=== PATIENT | male | born 1980 | race Caucasian/White ===

== ENCOUNTER → 2021-08-01 | Outpatient (CLI) | payer OTHER ==
--- NOTE | 2021-08-01 15:35 | CONS ---
CONSULTATION 41-year-old gentleman has been evaluated in Sleep Center for possible obstructive sleep apnea-hypopnea syndrome. HISTORY OF PRESENT ILLNESS SLEEP-WAKE EVALUATION: SLEEP SCHEDULE: Patient's usual sleep schedule from 10 p.m. until 5:45 am on weekdays and from 10 p.m. to 7 a.m. on weekends. FALLING ASLEEP: No problems with falling asleep, although he has TV set in bedroom. DURING SLEEP: He usually sleeps on the side position. He wakes up from sleep up to 5 times with nocturia. He has witnessed episodes of stopped breathing during sleep, choking and gasping for air. He wakes up with a dry mouth, panic attacks. Positive history of hypnagogic hallucinations but no history of sleep paralysis or cataplexy. DURING THE DAY/SLEEP WAKE EVALUATION: Positive history of taken naps during the day. [place] Sleepiness Scale is in very high range of 18. PAST MEDICAL HISTORY: Positive for hypertension, carpal tunnel syndrome. PAST SURGICAL HISTORY: Surgery for carpal tunnel syndrome on the right hand, right thumb surgery at top cutter. MEDICATIONS: Amlodipine, benazepril. SOCIAL HISTORY: Positive for smoking marijuana, negative for nicotine smoking, alcohol consumption, beer twice a week. FAMILY HISTORY: Hypertension heart problems, arthritis, asthma, sinus problems, acid reflux. REVIEW OF SYSTEMS: Multiple awakenings from sleep, significant sleepiness during the day. PHYSICAL EXAM: A 41-year-old gentleman without distress. BP 131/79, HR 99, RR 16, height 5 feet 11 inches, weight 331 pounds, body mass index 46, temperature 97.8, oxygen saturation at room air 98%. Oropharynx: Big uvula, wide pillars. Position of soft palate, Mallampati 2. NECK is extremely wide 22-1/2 inches in circumference. Neck: Supple, no JVD. Thyroid is not palpable. LUNGS: Clear to percussion and to auscultation. Good air exchange. No wheezing or rhonchi. HEART: S1, S2 regular. No murmurs, gallops, or rubs. ABDOMEN: Obese. Soft and nontender. Bowel sounds are present. No organomegaly appreciated. EXTREMITIES: No clubbing or cyanosis. CUSTOMS INSPECTOR: Awake, alert, and oriented X3. Cranial nerves 2 to 7 intact. There is no fasciculation or atrophy. noted. No focal deficits observed. IMPRESSION: 1. Multiple awakenings from sleep with nocturia, witnessed episodes of stopped breathing during sleep, extremely wide neck 22-1/2 inches in circumference, sleepiness, obstructive sleep apnea-hypopnea syndrome. 2. Positive history of hypnagogic hallucinations, significant excessive daytime sleepiness. [place] Sleepiness Scale is 18. Differential diagnosis should include hypersomnia, narcolepsy. 3. Obesity, body mass index 46. 4. Hypertension. 5. History of carpal tunnel syndrome. 6. Status post surgical treatment of carpal tunnel syndrome on the right side. PLAN: 1. Polysomnography for evaluation of patient's breathing during sleep. 2. CPAP/BiPAP titration if sleep study confirms obstructive sleep apnea-hypopnea syndrome. 3. Preferable position during sleep on the side. 4. No driving if patient feels any sleepiness. 5. I will see patient for follow up visit to explain results of testing and following plan. Thank you very much for allow me to participate in management of your patient. Sincerely, Gen Vallejo MD, PhD, FAASM Diplomat of [place] [employer] Sleep Medicine Board of [place] [employer] of [employer] Medicine [employer] Scout of [facility] [place] MMODL / IJN: [id number] /
== END ==
LOC: SLEEP 14:04
PROVIDERS: ATTEND Internal Medicine
DX: G47.33 Obstructive sleep apnea (adult) (pediatric) (principal); E66.9 Obesity, unspecified; I10 Essential (primary) hypertension; Z98.890 Other specified postprocedural states; Z87.39 Personal history of other diseases of the musculoskeletal system and connective tissue; Z68.42 Body mass index [BMI] 45.0-49.9, adult
CPT/HCPCS: 99202

== ENCOUNTER → 2021-11-28 | Outpatient (CLI) | payer OTHER ==
--- NOTE | 2021-11-28 22:55 | SFUN ---
SLEEP CENTER FOLLOW UP NOTE DATE OF SERVICE: 11/28/2021 41-year-old gentleman has been followed in Sleep Center for treatment of obstructive sleep apnea-hypopnea syndrome. Recently, the patient had polysomnogram and PAP titration. Polysomnogram showed extremely severe obstructive sleep apnea-hypopnea syndrome. I discussed results of sleep studies with patient in details. Subsequently he received PAP unit, started to use it and today is his first visit after CPAP therapy was started. The patient feels much better while using his CPAP equipment, significantly improved his alertness during the day. [place] Sleepiness Scale decreased from 18 during consultation to 4 today while patient is on treatment with CPAP. I checked his CPAP unit. Range of the pressure from 8-18. Average pressure of 13 cm of water. Usage is 97% of the time. Average usage 4 hours 48 minutes. Significant amount of nights usage close to 4 hours apnea-hypopnea index is only 1.8, which is absolutely perfect. Leak is 16.7 L/minute and 95%, which is acceptable. CURRENT MEDICATIONS: Amlodipine and benazepril. PHYSICAL EXAMINATION: GENERAL: Patient in no distress. BP 126/81, HR 88, RR 16, weight 323 pounds, temperature 97.6. Oxygen saturation on room air 96%. Oropharynx: Low position of soft palate, Mallampati 2. NECK: Supple, no JVD. Thyroid is not palpable. LUNGS: Clear to percussion and to auscultation. Good air exchange. No wheezing or rhonchi. HEART: S1, S2 regular. No murmurs, gallops, or rubs. ABDOMEN: Obese. Soft and nontender. Bowel sounds are present. No organomegaly appreciated. EXTREMITIES: No clubbing or cyanosis. REAL ESTATE ADMINISTRATIVE ASSISTANT: Awake, alert, and oriented X3. Cranial nerves 2 to 7 intact. There is no fasciculation or atrophy. noted. No focal deficits observed. IMPRESSION: 1. Extremely severe obstructive sleep apnea-hypopnea syndrome apnea-hypopnea index 107 with oxygen desaturation to 67.4% mostly on control with CPAP with full normalization of respiration and normalization of alertness during the day. 2. Hypertension. 3. Obesity. 4. History of carpal tunnel syndrome status post surgical treatment on the right side. PLAN: 1. Patient will continue to use PAP equipment every night for the whole night. 2. Sleep hygiene with regular time in bed for at least 7-1/2 to 8 hours. 3. Precautions related to driving. No driving if feeling sleepiness. 4. I will maintain all necessary prescription for PAP supplies including mask, tube, filters. 5. Watching weight. 6. Follow-up visit in 6 months or earlier if patient has any problems. Thank you very much for allowing me to participate in the management of your patient. Sincerely, Gen Vallejo MD, PhD, FAASM Diplomat of [employer] Sleep Medicine Board of [employer] Board of Internal Medicine Caramel Cutter Hand of [facility] [place] MMODL / IJN: [id number] /
== END ==
LOC: SLEEP 15:06
PROVIDERS: ATTEND Internal Medicine
DX: G47.33 Obstructive sleep apnea (adult) (pediatric) (principal); I10 Essential (primary) hypertension; E66.9 Obesity, unspecified; Z99.89 Dependence on other enabling machines and devices; Z87.39 Personal history of other diseases of the musculoskeletal system and connective tissue; Z98.890 Other specified postprocedural states

== ENCOUNTER → 2022-06-19 | Outpatient (CLI) | payer OTHER ==
--- NOTE | 2022-06-19 16:51 | P.PN ---
Subjective DATE: 06/19/2022 FOLLOW UP VISIT. Patient with obstructive sleep apnea hypopnea syndrome return to sleep center for follow-up visit. Information from previous visit have been reviewed. Patient is using PAP equipment every night for the whole night, getting PAP supplies in time. The patient does not have significant problems with the mask, PAP unit and humidification. [place] sleepiness scale is 5, which is normal. I checked information from PAP unit. PAP unit pressure 8-18, average 13.3 cm H2O. Usage is 80 % for more then 4 hours, average 4.8 hours per night. Leak is borderline 35 l/m, which is in acceptable range. Apnea Hypopnea Index is [], which is normal. MEDICATIONS: None During physical exam: GENERAL: A pleasant patient without any distress. VITAL SIGNS: BP 156/91, HR 81, RR 16 , weight 321.8, temperature 98.8, oxygen saturation at room air 97 % . HEENT: PERRLA, EOMI.low position of soft palate, Mallapati 2-3 . NECK: Supple. No JVD. LUNGS: Clear to percussion and to auscultation. Good air exchange. No wheezing or rhonchi. HEART: S1, S2 regular. ABDOMEN: Soft and nontender. Obese EXTREMITIES: No clubbing or cyanosis. MEDICAL INSURANCE BILLER: Awake, alert, and oriented x3. No focal deficit. Impressions: 1. Obstructive sleep apnea-hypopnea syndrome and extremely severe range by regional apnea-hypopnea index 107. Patient demonstrated good compliance with treatment, benefiting from treatment. 2. Hypertension. 3. Obesity. 4. History of carpal tunnel syndrome status post surgical treatment on the right side. Plan: 1. Continue using PAP equipment every night for the whole night. 2. To change air filter at least 1-2 times per month. 3. PAP unit should stay lower then position of the head. 4. Advised patient to remove all remaining water from humidifier canister daily and make it dry after each usage. Refill canister with fresh distilled water before each usage. 5. Sleep hygiene with regular time in bed for at least 8 hours. 6. Precautions related to driving. No driving if feel any sleepiness. 7. I will maintain prescription for PAP supplies including mask, tube, filters. 8. Follow up visit in 6 months or earlier if patient has any problems. 9. Watching and losing weight. Thank you very much for allowing me to participate in the management of your patient. Gen Vallejo MD, PhD, FAASM. Diplomat of [employer] Board of Sleep Medicine, Sleep Medicine Board by [employer] Board of Internal Medicine Endocrinology Specialist of [facility] [place]
== END ==
LOC: SLEEP 16:18
PROVIDERS: ATTEND Internal Medicine
DX: G47.33 Obstructive sleep apnea (adult) (pediatric) (principal); Z99.89 Dependence on other enabling machines and devices; I10 Essential (primary) hypertension; E66.9 Obesity, unspecified; Z98.890 Other specified postprocedural states
CPT/HCPCS: 99202

== ENCOUNTER → 2023-01-16 | Outpatient (CLI) | payer OTHER ==
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
== END ==
LOC: 3 N SLEEP 10:46
PROVIDERS: ATTEND Internal Medicine
DX: G47.33 Obstructive sleep apnea (adult) (pediatric) (principal); I10 Essential (primary) hypertension; E66.9 Obesity, unspecified; G56.00 Carpal tunnel syndrome, unspecified upper limb; Z99.89 Dependence on other enabling machines and devices; Z87.39 Personal history of other diseases of the musculoskeletal system and connective tissue
CPT/HCPCS: 99212

== ENCOUNTER → 2023-07-24 | Outpatient (CLI) | payer OTHER ==
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
== END ==
LOC: 3 N SLEEP 10:52
PROVIDERS: ATTEND Internal Medicine
DX: G47.33 Obstructive sleep apnea (adult) (pediatric) (principal); I10 Essential (primary) hypertension; E66.9 Obesity, unspecified; Z87.39 Personal history of other diseases of the musculoskeletal system and connective tissue; Z87.81 Personal history of (healed) traumatic fracture; Z99.89 Dependence on other enabling machines and devices; Z79.899 Other long term (current) drug therapy
CPT/HCPCS: 99212

== ENCOUNTER → 2024-03-03 | Outpatient (CLI) | payer OTHER ==
[2024-03-03 10:57] VITALS: BP 147/94; PULSE 80; RESP 16; TEMP 98.3
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
== END ==
LOC: 3 N SLEEP 10:39
PROVIDERS: ATTEND Internal Medicine
CPT/HCPCS: 99212

== ENCOUNTER → 2024-09-15 | Outpatient (CLI) | payer OTHER ==
[2024-09-15 13:25] VITALS: BP 158/107; PULSE 74; RESP 16; TEMP 98.5
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
== END ==
LOC: 3 N SLEEP 13:03
PROVIDERS: ATTEND Internal Medicine
DX: G47.33 Obstructive sleep apnea (adult) (pediatric) (principal); E66.01 Morbid (severe) obesity due to excess calories; I10 Essential (primary) hypertension; Z68.42 Body mass index [BMI] 45.0-49.9, adult; Z86.69 Personal history of other diseases of the nervous system and sense organs; Z87.81 Personal history of (healed) traumatic fracture
CPT/HCPCS: 99212